=== PATIENT | female | born 1960 | race Caucasian/White ===

== ENCOUNTER 2020-10-30 19:36 | Outpatient (CLI) | payer MEDICAID | END 2020-10-30 23:59 | disposition EMS.NT | LOC: EMS 19:36 | DX: R45.89 Other symptoms and signs involving emotional state (principal) ==

== ENCOUNTER 2020-10-30 20:36 | Emergency (ER) | payer MEDICAID, MEDICARE, OTHER ==
--- NOTE | 2020-10-30 20:51 | ED Physician Documentation ---
PD HPI ALTERED MENTAL STATUS - Stated complaint Stated Complaint: UNRESPONSIVE - Chief complaint Chief Complaint: MHE PD PAST MEDICAL HISTORY - Past Medical History Cardiovascular: Hypertension, High cholesterol, Pulmonary embolism Respiratory: Sleep apnea, CPAP use GI: Crohn's disease Psych: Anxiety - Past Surgical History Past Surgical History: Yes General: Cholecystectomy Cardiovascular: Coronary stent - Present Medications Home Medications: Ambulatory Orders Medication Instructions Recorded Confirmed Aspirin [Aspir 81] 81 mg PO DAILY 02/24/15 01/12/18 Atorvastatin Calcium [Lipitor] 80 mg PO QPM 02/24/15 01/12/18 PARoxetine HCl [Paxil] 30 mg PO DAILY 02/24/15 01/12/18 Temazepam [Restoril] 15 - 30 mg PO QPM PRN 02/24/15 01/12/18 Triamterene/Hydrochlorothiazid 1 tab PO DAILY 02/24/15 01/12/18 [Triamterene-Hctz 37.5-25 mg Cp] Furosemide 40 mg PO SUMOWEFR@0800 01/06/18 01/12/18 Melatonin 5 mg PO QPM 01/06/18 01/12/18 Metoprolol Succinate [Toprol Xl] 50 mg PO QPM 01/06/18 01/12/18 Potassium Chloride 20 meq PO DAILY 01/06/18 01/12/18 Ropinirole HCl 1 mg PO QPM 01/06/18 01/12/18 Bifidobacterium Infantis [Align] 4 mg PO DAILY 01/07/18 01/12/18 Warfarin Sodium 6 mg PO SUTUTHSA@2100 01/07/18 01/12/18 Warfarin [Coumadin] 4 mg PO MOWEFR@2100 01/07/18 01/12/18 Ciprofloxacin [Cipro] 500 mg PO BID #8 tablet 01/09/18 01/12/18 metroNIDAZOLE [Flagyl] 500 mg PO Q8H #12 tablet 01/09/18 01/12/18 cephALEXin [Keflex] 500 mg PO QID #40 capsule 01/10/18 01/12/18 - Allergies Allergies/Adverse Reactions: Allergies Allergy/AdvReac Type Severity Reaction Status Date / Time adhesive Allergy Unknown Verified 10/13/20 10:58 Sulfa (Sulfonamide Allergy Rash Verified 10/13/20 10:58 Antibiotics) tetracycline Allergy Unknown Verified 10/13/20 10:58 - Social History Does the pt smoke?: No Smoking Status: Never smoker Does the pt have substance abuse?: No - Immunizations Immunizations are current?: Yes - POLST Patient has POLST: No Results - Vitals Vitals: Vital Signs - 24 hr 10/30/20 20:43 Temperature 36.9 C Heart Rate 86 Respiratory 18 Rate Blood Pressure 107/67 O2 Saturation 98 Oxygen O2 Source Room air PD MEDICAL DECISION MAKING - ED course ED course: Patient access assigned the patient to the wrong account number. Please ignore this note.
== END 2020-10-30 21:26 | disposition home or self-care (01) ==
LOC: EDUNIT# → EDBD → EDUNIT# 20:36 → EDBD 20:36 → ED 20:36
DX: Z53.21 Procedure and treatment not carried out due to patient leaving prior to being seen by health care provider (principal)
CPT/HCPCS: 80053; 80320; 83735; 85025

== ENCOUNTER 2020-10-30 21:15 | Emergency (ER) | payer MEDICAID ==
--- NOTE | 2020-10-30 21:22 | ED Physician Documentation ---
History of Present Illness - Stated complaint Stated Complaint: UNRESPONSIVE - Chief complaint Chief Complaint: MHE - History obtained from History obtained from: Patient, EMS - Additonal information Additional information: She presents by ambulance after an episode of unconsciousness, but the EMT states that even when she was unconscious she was screaming. Reportedly mixed some alcohol with an Ambien and her other regular meds tonight. There was no suicidal attempt or overdose other than the alcohol though. She admits to depression anxiety but has no other acute complaints. Review of Systems Ten Systems: 10 systems reviewed and negative Constitutional: reports: Reviewed and negative Throat: reports: Reviewed and negative Cardiac: reports: Reviewed and negative PD PAST MEDICAL HISTORY - Present Medications Home Medications: Ambulatory Orders Medication Instructions Recorded Confirmed Citalopram Hydrobromide [Celexa] 40 mg PO DAILY 10/30/20 10/30/20 Levothyroxine Sodium 150 mcg PO DAILY 10/30/20 10/30/20 [Levothyroxine] Liothyronine Sodium [Cytomel] 25 mg PO DAILY 10/30/20 10/31/20 Methocarbamol [Robaxin-750] 750 mg PO DAILY PRN 10/30/20 10/30/20 Metoprolol Tartrate [Lopressor] 50 mg PO DAILY 10/30/20 10/31/20 Pantoprazole Sodium [Protonix] 40 mg PO DAILY 10/30/20 10/31/20 Zolpidem Tartrate [Ambien] 10 mg PO QPM 10/30/20 10/31/20 hydrOXYzine HCL [Hydroxyzine HCl] 25 mg PO DAILY 10/30/20 10/31/20 - Allergies Allergies/Adverse Reactions: Allergies Allergy/AdvReac Type Severity Reaction Status Date / Time No Known Drug Allergies Allergy Verified 10/30/20 21:35 PD ED PE NORMAL - Vitals Vital signs reviewed: Yes - General General: Alert and oriented X 3, No acute distress - HEENT HEENT: PERRL, EOMI (with nystagmus) - Neck Neck: Supple, no meningeal sign, No bony TTP - Cardiac Cardiac: RRR, No murmur - Respiratory Respiratory: No respiratory distress, Clear bilaterally - Back Back: No CVA TTP, No spinal TTP - Derm Derm: Normal color, Warm and dry - Extremities Extremities: No edema, No calf tenderness / cord - Neuro Neuro: Alert and oriented X 3, Normal speech - Psych Psych: Other (tearful) Results - Vitals Vitals: Vital Signs - 24 hr 10/30/20 10/30/20 10/31/20 21:18 23:47 07:26 Temperature 36.9 C 36.5 C Heart Rate 86 72 73 Respiratory 18 16 18 Rate Blood Pressure 107/67 118/83 H 152/87 H O2 Saturation 98 95 94 Oxygen O2 Source Room air - Labs Labs: Laboratory Tests 10/30/20 10/30/20 10/30/20 21:25 21:29 21:29 WBC 7.0 RBC 3.84 L Hgb 12.9 Hct 38.5 MCV 100.3 H MCH 33.6 H MCHC 33.5 RDW 12.8 Plt Count 206 MPV 10.0 Neut # (Auto) 4.2 Lymph # (Auto) 2.0 [place] # (Auto) 0.6 Eos # (Auto) 0.2 Baso # (Auto) 0.1 Absolute Nucleated RBC 0.00 Nucleated RBC % 0.0 Sodium 142 Potassium 5.1 H Chloride 109 Carbon Dioxide 21 Anion Gap 12.0 BUN 27 H Creatinine 1.1 H Estimated GFR (MDRD) 50 L Glucose 96 Calcium 8.8 Magnesium 2.0 Total Bilirubin 0.4 AST 24 ALT 16 Alkaline Phosphatase 71 Total Protein 7.3 Albumin 3.9 Globulin 3.4 Albumin/Globulin Ratio 1.1 Lipase 23 Nasal Adenovirus (PCR) Nasal B. parapertussis DNA (PCR) Nasal Coronavir 229E PCR Nasal Coronavir HKU1 PCR Nasal Coronavir NL63 PCR Nasal Coronavir OC43 PCR Nasal Enterovir/Rhinovir PCR Nasal Influenza B PCR Nasal Influenza A PCR Nasal Parainfluen 1 PCR Nasal Parainfluen 2 PCR Nasal Parainfluen 3 PCR Nasal Parainfluen 4 PCR Nasal RSV (PCR) Nasal B.pertussis DNA PCR Nasal C.pneumoniae (PCR) Larry Human Metapneumo PCR Nasal M.pneumoniae (PCR) Nasal SARS-CoV-2 (PCR) Salicylates < 6.0 Urine Opiates Screen NEGATIVE Ur Oxycodone Screen NEGATIVE Urine Methadone Screen NEGATIVE Ur Propoxyphene Screen NEGATIVE Acetaminophen < 10 L Ur Barbiturates Screen NEGATIVE Ur Tricyclics Screen NEGATIVE Ur Phencyclidine Scrn NEGATIVE Ur Amphetamine Screen NEGATIVE U Methamphetamines Scrn NEGATIVE U Benzodiazepines Scrn NEGATIVE Urine Cocaine Screen NEGATIVE U Cannabinoids Screen NEGATIVE Ethyl Alcohol 225.1 10/30/20 10/31/20 23:44 07:17 WBC RBC Hgb Hct MCV MCH MCHC RDW Plt Count MPV Neut # (Auto) Lymph # (Auto) [place] # (Auto) Eos # (Auto) Baso # (Auto) Absolute Nucleated RBC Nucleated RBC % Sodium Potassium Chloride Carbon Dioxide Anion Gap BUN Creatinine Estimated GFR (MDRD) Glucose Calcium Magnesium Total Bilirubin AST ALT Alkaline Phosphatase Total Protein Albumin Globulin Albumin/Globulin Ratio Lipase Nasal Adenovirus (PCR) NOT DETECTED Nasal B. parapertussis DNA (PCR) NOT DETECTED Nasal Coronavir 229E PCR NOT DETECTED Nasal Coronavir HKU1 PCR NOT DETECTED Nasal Coronavir NL63 PCR NOT DETECTED Nasal Coronavir OC43 PCR NOT DETECTED Nasal Enterovir/Rhinovir PCR NOT DETECTED Nasal Influenza B PCR NOT DETECTED Nasal Influenza A PCR NOT DETECTED Nasal Parainfluen 1 PCR NOT DETECTED Nasal Parainfluen 2 PCR NOT DETECTED Nasal Parainfluen 3 PCR NOT DETECTED Nasal Parainfluen 4 PCR NOT DETECTED Nasal RSV (PCR) NOT DETECTED Nasal B.pertussis DNA PCR NOT DETECTED Nasal C.pneumoniae (PCR) NOT DETECTED Larry Human Metapneumo PCR NOT DETECTED Nasal M.pneumoniae (PCR) NOT DETECTED Nasal SARS-CoV-2 (PCR) NOT DETECTED Salicylates Urine Opiates Screen Ur Oxycodone Screen Urine Methadone Screen Ur Propoxyphene Screen Acetaminophen Ur Barbiturates Screen Ur Tricyclics Screen Ur Phencyclidine Scrn Ur Amphetamine Screen U Methamphetamines Scrn U Benzodiazepines Scrn Urine Cocaine Screen U Cannabinoids Screen Ethyl Alcohol 66.6 PD MEDICAL DECISION MAKING - ED course ED course: 60yo woman presents with EtOH intoxication. While drunk, voicing request to go to detox. Care to overnight ED MD pending sobriety and SW C/S in AM. Departure - Departure Clinical Impression: Depression Qualifiers: Depression Type: major depressive disorder Major depression recurrence: recurrent Active/Remission status: currently active Major depression episode severity: moderate Qualified Code(s): F33.1 - Major depressive disorder, recurrent, moderate Alcoholic intoxication Qualifiers: Complication of substance-induced condition: uncomplicated Qualified Code(s): F10.920 - Alcohol use, unspecified with intoxication, uncomplicated Condition: Stable Instructions: ED Depression, ED Alcohol Intoxication
[2020-10-30] MEDS ORDERED: LORazepam 1 MG TABLET PO STA (21:29)
[2020-10-30 21:33] LABS: BASOPHILS # (AUTO) 0.1 10^3/uL (0.0-0.1); BASOPHILS % (AUTO) 0.7 %; EOSINOPHILS # (AUTO) 0.2 10^3/uL (0.0-0.7); HCT - HEMATOCRIT 38.5 % (37.0-47.0); HGB - HEMOGLOBIN 12.9 g/dL (12.0-16.0); LYMPHOCYTES % (AUTO) 28.6 %; MEAN CORPUSCULAR HEMOGLOBIN 33.6 pg (27.0-31.0); MEAN CORPUSCULAR HGB CONC 33.5 g/dL (32.0-36.0); MEAN CORPUSCULAR VOLUME 100.3 fL (81.0-99.0); MONOCYTES # (AUTO) 0.6 10^3/uL (0.0-1.0); MONOCYTES % (AUTO) 8.1 %; NEUTROPHILS # (AUTO) 4.2 10^3/uL (1.5-6.6); NEUTROPHILS % (AUTO) 59.5 %; PLT - PLATELET COUNT 206 10^3/uL (130-450); RED BLOOD COUNT 3.84 10^6/uL (4.20-5.40); RED CELL DISTRIBUTION WIDTH 12.8 % (12.0-15.0)
[2020-10-30 21:33] LABS: MUDS CUTOFF CONCENTRATIONS CUTOFF CONC BELOW:
[2020-10-30 21:46] LABS: AMPHETAMINE SCREEN,URINE NEGATIVE (NEGATIVE); BARBITURATE SCREEN,UR NEGATIVE (NEGATIVE); BENZODIAZEPINES SCREEN, URINE NEGATIVE (NEGATIVE); COCAINE SCREEN URINE NEGATIVE (NEGATIVE); METHADONE SCREEN, URINE NEGATIVE (NEGATIVE); METHAMPHETAMINES SCREEN, URINE NEGATIVE (NEGATIVE); OPIATE SCREEN, URINE NEGATIVE (NEGATIVE); OXYCODONE SCREEN, URINE NEGATIVE (NEGATIVE); PROPOXYPHENE SCREEN, URINE NEGATIVE (NEGATIVE); THC CANNABINOID SCREEN, URINE NEGATIVE (NEGATIVE); TRICYCLIC ANTIDEPRESSANT,URINE NEGATIVE (NEGATIVE)
[2020-10-30 21:50] LABS: ACETAMINOPHEN < 10 ug/mL (10-30); ALBUMIN 3.9 g/dL (3.2-5.5); ALBUMIN/GLOBULIN RATIO 1.1 (1.0-2.2); ALKALINE PHOSPHATASE 71 IU/L (42-121); ALT ALANINE AMINOTRANSFERASE 16 IU/L (10-60); AST ASPARTATE AMINOTRANSFERASE 24 IU/L (10-42); BILIRUBIN,TOTAL 0.4 mg/dL (0.2-1.0); BUN - BLOOD UREA NITROGEN 27 mg/dL (6-20); CALCIUM 8.8 mg/dL (8.5-10.3); CARBON DIOXIDE - CO2 21 mmol/L (21-32); CHLORIDE 109 mmol/L (101-111); CREATININE 1.1 mg/dL (0.4-1.0); ETOH - ETHANOL 225.1 mg/dL; GFR - MDRD 50 (>89); GLUCOSE 96 mg/dL (70-100); LIPASE 23 U/L (22-51); POTASSIUM 5.1 mmol/L (3.5-5.0); SALICYLATE < 6.0 mg/dL; SODIUM 142 mmol/L (135-145); TOTAL PROTEIN 7.3 g/dL (6.7-8.2)
[2020-10-31 00:38] LABS: B. PARAPERTUSSIS- RESP PCR PAN NOT DETECTED; B. PERTUSSIS- RESP PCR PANEL NOT DETECTED; C. PNEUMONIAE- RESP PCR PANEL NOT DETECTED; CORONAVIRUS 229E-RESP PCR NOT DETECTED; CORONAVIRUS HKU1-RESP PCR NOT DETECTED; CORONAVIRUS NL63-RESP PCR NOT DETECTED; CORONAVIRUS OC43-RESP PCR NOT DETECTED; HUMAN METAPNEUMOVIRUS NOT DETECTED; INFLUENZA A- RESP PCR PANEL NOT DETECTED; INFLUENZA B - RESP PCR PANEL NOT DETECTED; M. PNEUMONIAE- RESP PCR PANEL NOT DETECTED; PARAINFLUENZA VIRUS 1 NOT DETECTED; PARAINFLUENZA VIRUS 2 NOT DETECTED; PARAINFLUENZA VIRUS 3 NOT DETECTED; PARAINFLUENZA VIRUS 4 NOT DETECTED; RHINOVIRUS/ENTEROVIRUS NOT DETECTED; RSV- RESP PCR PANEL NOT DETECTED; SARS-CoV-2 -RESP PCR PANEL NOT DETECTED
[2020-10-31 11:17] VITALS: BP 158/100
== END 2020-10-31 12:19 | disposition home or self-care (01) ==
LOC: ED 21:15
DX: F10.920 Alcohol use, unspecified with intoxication, uncomplicated (principal); F33.1 Major depressive disorder, recurrent, moderate; F41.9 Anxiety disorder, unspecified; Z20.822 Contact with and (suspected) exposure to COVID-19
CPT/HCPCS: 0202U; 36415; 80053; 80306; 80307; 80320; 80329; 83690; 83735; 85025; 99283; 99284; J8499

== ENCOUNTER 2020-12-08 15:04 | Emergency (ER) | payer MEDICAID ==
--- OUTSIDE RECORDS SUMMARY | 2020-12-08 15:08 | EXTERNAL MEDICAL SUMMARY RPT | Continuity of Care Document ---
:1960 Demographics Phone Unavailable Preferred Language Unknown Marital Status Unknown Zoroastrianism Affiliation Unknown Race Unknown Ethnic Group Unknown Author Organization [place] Address [address] [phone] Phone Care Team Providers Name Role Phone Registrar Unavailable Unavailable Problems date description facility 20201201 Alcohol use All 20201201 Allergic rhinitis All 20201201 Allergic rhinitis, cause unspecified A ll 20201201 Allergic rhinitis, unspecified All 20201201 CBC W/Diff/Plt All 20201201 COMPREHENSIVE METABOLIC PANEL All 20201201 Dysthymic disorder All 20201201 Encounters for other specified administ rative purpose All 20201201 Esophageal reflux All 20201201 Exercise All 20201201 Feeling down, depressed, or hopeless? All 20201201 Former smoker All 20201201 Gastro-esophageal reflux disease withou t esophagitis All 20201201 Gastroesophageal reflux disease All 20201201 Hypothyroidism All 20201201 Hypothyroidism, unspecified All 20201201 Insomnia All 20201201 Insomnia, unspecified All 20201201 LIPIDS SCREEN All 20201201 Little interest or pleasure in doing th ings? All 20201201 MM SCR DIGITAL MAMMO BILAT All 20201201 Migraine All 20201201 Migraine, unspecified, not intractable, without status All migrainosus 20201201 Migraine, unspecified, without mention of intractable All migraine, without mention of status migr ainosus 20201201 Mixed anxiety and depressive disorder All 20201201 Other specified anxiety disorders All 20201201 Other specified counseling All 20201201 Patient Health Questionnaire 2 item (PH Q2) total score All 20201201 Procedure carried out on subject All 20201201 Scoliosis [and kyphoscoliosis], idiopat hic All 20201201 Scoliosis deformity of spine All 20201201 Scoliosis, unspecified All 20201201 TSH WITH REFLEX TO FT4 All 20201201 Total score? All 20201201 Unspecified hypothyroidism All Medications date description facility 20201201 ZOLPIDEM TARTRATE All 20201201 FLUTICASONE PROPIONATE All 20201201 HYDROXYZINE HCL All 20201201 CITALOPRAM HYDROBROMIDE All 20201201 METOPROLOL TARTRATE All 20201201 LEVOTHYROXINE SODIUM All 20201201 SUMATRIPTAN SUCCINATE All 20201201 PANTOPRAZOLE SODIUM All [id number] LIOTHYRONINE SODIUM All 20657199 METHOCARBAMOL All [id number] METHOCARBAMOL All [id number] FLUTICASONE PROPIONATE All [id number] CITALOPRAM HYDROBROMIDE All [id number] SUMATRIPTAN SUCCINATE All [id number] PANTOPRAZOLE SODIUM All 22500320 ZOLPIDEM TARTRATE All [id number] METOPROLOL TARTRATE All [id number] LIOTHYRONINE SODIUM All 11060748 LEVOTHYROXINE SODIUM All [id number] HYDROXYZINE HCL All Procedures date description facility 20201201 SNOMED-CT:[id number] Hx of Hysterectomy All Vital Signs date measurement value source 20201201 BMI 28.02 kg/m2 20201201 BP_diastolic 69 mm[Hg] 63550481 BP_systolic 115 mm[Hg] 20201201 heart_rate 72 /min [id number] height_metric 152.4 cm [id number] height_standard 60 in 20201201 respiration_rate 16 /min 20201201 temperature_metric 36.22 C 20201201 temperature_standard 97.2 F 20201201 weight_metric 65.09 kg 20201201 weight_standard 143.5 lb Social History date description facility [id number]
--- NOTE | 2020-12-08 15:20 | ED Physician Documentation ---
PD HPI Fall - Stated complaint Stated Complaint: FALL, LEFT SIDE PX - Chief complaint Chief Complaint: Trauma Ch/Bk - History obtained from History obtained from: Patient - History of Present Illness Mechanism of injury: Other (she states she fell from bed. Is staying with her [id number] while son on deployment. Has pain in left back/side.) Fall distance: From bed Where injury occurred: Home (visiting at her son's house) Timing - onset: How many days ago (4) Injury(ies) location: Chest, Back Quality of pain: Pain, Aching Associated symptoms: No: LOC, AMS Worsens with: Movement, Palpation Contributing factors: No: Anticoagulated, Intoxicated Similar symptoms before: Has not had sx before Review of Systems Constitutional: denies: Fever, Chills Nose: denies: Rhinorrhea / runny nose, Congestion Throat: denies: Sore throat Cardiac: reports: Chest pain / pressure (left posterolateral chest and down to flank area.). denies: Palpitations, Pedal edema, Calf pain Respiratory: reports: Dyspnea. denies: Cough, Wheezing GI: reports: Abdominal Pain (left lateral and flank). denies: Nausea, Vomiting, Diarrhea : denies: Hematuria Skin: denies: Abrasion (s), Laceration (s) Neurologic: denies: Focal weakness, Numbness, Headache, Head injury PD PAST MEDICAL HISTORY - Past Medical History Cardiovascular: Hypertension Respiratory: Asthma Endocrine/Autoimmune: HyPOthyroidism GI: GERD Psych: Depression, Anxiety, Other - Past Surgical History Past Surgical History: Yes General: Cholecystectomy, Appendectomy /HEMATOLOGY SPECIALIST: Hysterectomy - Present Medications Home Medications: Ambulatory Orders Medication Instructions Recorded Confirmed Citalopram Hydrobromide [Celexa] 40 mg PO DAILY 10/30/20 12/08/20 Levothyroxine Sodium 150 mcg PO DAILY 10/30/20 12/08/20 [Levothyroxine] Citalopram [CeleXA] 40 mg PO DAILY #30 tablet 10/31/20 12/08/20 LORazepam [Lorazepam] 2 mg PO Q8HR #9 tablet 10/31/20 12/08/20 Liothyronine Sodium [Cytomel] 25 mcg PO DAILY #30 tablet 10/31/20 12/08/20 Methocarbamol [Robaxin-750] 750 mg PO DAILY PRN #30 tab 10/31/20 12/08/20 Pantoprazole Sodium [Protonix] 40 mg PO DAILY #30 10/31/20 12/08/20 Zolpidem Tartrate [Ambien] 10 mg PO QPM #30 tab 10/31/20 12/08/20 hydrOXYzine HCL [Hydroxyzine HCl] 25 mg PO DAILY #30 tab 10/31/20 12/08/20 Metoprolol Tartrate [Lopressor] 50 mg PO BID 12/08/20 12/08/20 Oxycodone HCl/Acetaminophen 1 each PO Q6H PRN #15 tablet 12/08/20 [Percocet 5-325 mg Tablet] tiZANidine [Zanaflex] 4 mg PO Q8H PRN #20 tablet 12/08/20 - Allergies Allergies/Adverse Reactions: Allergies Allergy/AdvReac Type Severity Reaction Status Date / Time adhesive Allergy Unknown Verified 12/08/20 15:07 Sulfa (Sulfonamide Allergy Rash Verified 12/08/20 15:07 Antibiotics) tetracycline Allergy Unknown Verified 12/08/20 15:07 - Social History Does the pt smoke?: No Smoking Status: Never smoker Does the pt drink ETOH?: Yes Does the pt have substance abuse?: No - Immunizations Immunizations are current?: Yes - POLST Patient has POLST: No PD ED PE NORMAL - Vitals Vital signs reviewed: Yes - General General: Alert and oriented X 3, Well developed/nourished, Other (appears in pain left posterolateral chest and flank area) - HEENT HEENT: Atraumatic - Neck Neck: Supple, no meningeal sign, No bony TTP, No adenopathy - Cardiac Cardiac: RRR, No murmur - Respiratory Respiratory: Clear bilaterally, Other (tender left lateral back from about 4th rib down to CVA area. ) - Abdomen Abdomen: Soft, Non tender - Derm Derm: Normal color, Warm and dry Results - Vitals Vitals: Oxygen O2 Source Room air - Labs Labs: Laboratory Tests 12/08/20 12/08/20 12/08/20 15:52 15:52 17:27 WBC 8.8 RBC 4.14 L Hgb 13.5 Hct 39.6 MCV 95.7 MCH 32.6 H MCHC 34.1 RDW 11.2 L Plt Count 250 MPV 10.3 Neut # (Auto) 6.1 Lymph # (Auto) 1.8 [place] # (Auto) 0.7 Eos # (Auto) 0.1 Baso # (Auto) 0.0 Absolute Nucleated RBC 0.00 Nucleated RBC % 0.0 Sodium 139 Potassium 5.0 Chloride 110 Carbon Dioxide 20 L Anion Gap 9.0 BUN 24 H Creatinine 1.2 H Estimated GFR (MDRD) 46 L Glucose 90 Calcium 9.5 Total Bilirubin 0.8 AST 16 ALT 13 Alkaline Phosphatase 69 Total Protein 7.9 Albumin 4.6 Globulin 3.3 Albumin/Globulin Ratio 1.4 Lipase 35 Urine Color YELLOW Urine Clarity CLEAR Urine pH 6.0 Ur Specific Bennett 1.010 Urine Protein NEGATIVE Urine Glucose (UA) NEGATIVE Urine Ketones NEGATIVE Urine Occult Blood TRACE-LYSE Urine Nitrite NEGATIVE Urine Bilirubin NEGATIVE Urine Urobilinogen 0.2 (NORMAL) Ur Leukocyte Esterase NEGATIVE Ur Microscopic Review NOT INDICATED Urine Culture Comments NOT INDICATED Urine Opiates Screen NEGATIVE Ur Oxycodone Screen NEGATIVE Urine Methadone Screen NEGATIVE Ur Propoxyphene Screen NEGATIVE Ur Barbiturates Screen NEGATIVE Ur Tricyclics Screen NEGATIVE Ur Phencyclidine Scrn NEGATIVE Ur Amphetamine Screen NEGATIVE U Methamphetamines Scrn NEGATIVE U Benzodiazepines Scrn NEGATIVE Urine Cocaine Screen NEGATIVE U Cannabinoids Screen NEGATIVE - Rads (name of study) chest/abd CT Radiology: Prelim report reviewed (no organ injuries. contour abnormality at 4th rib suggestive of nondisplaced fracture. ), See rad report PD MEDICAL DECISION MAKING - ED course Complexity details: reviewed results (single rib fracture, no organ injuries, and she would prefer going home. ), considered differential, d/w patient Departure - Departure Disposition: 01 Home, Self Care Clinical Impression: Fall from bed, initial encounter Contusion, chest wall Qualifiers: Encounter type: initial encounter Laterality: left Qualified Code(s): S20.212A - Contusion of left front wall of thorax, initial encounter Rib fracture Qualifiers: Encounter type: initial encounter Rib fracture type: single rib Fracture type: closed Laterality: left Qualified Code(s): S22.32XA - Fracture of one rib, left side, initial encounter for closed fracture Condition: Stable Record reviewed to determine appropriate education?: Yes Instructions: ED Contusion Chest Wall, ED Fx Rib Follow-Up: Jennifer Landeros ARNP [Primary Care Provider] - Prescriptions: Oxycodone HCl/Acetaminophen [Percocet 5-325 mg Tablet] 1 each PO Q6H PRN #15 tablet PRN Reason: pain tiZANidine [Zanaflex] 4 mg PO Q8H PRN #20 tablet PRN Reason: Spasms Comments: Your CT scan shows a possible nondisplaced fracture of the lateral fourth rib. This is a little higher than where you are actually hurting so there may be just mostly strain of the muscles around the ribs in the area of the pain. It could be referring down from that area as well. No signs of organ injuries on the CT scan. Stay well-hydrated. Activity as tolerated. Continue with some anti- inflammatories such as ibuprofen or naproxen with food 2-3 times daily for the next several days to a week. To that add tizanidine muscle relaxant for spasm or stiffness. To that add Tylenol every 4-6 hours for oxycodone if needed for worse pain. I would anticipate improvement over the next several days and resolution by 5 to 7 days. Recheck if not improving in that timeframe. Return if worsening. Discharge Date/Time: 12/08/20 19:03
--- OUTSIDE RECORDS SUMMARY | 2020-12-08 15:21 | EXTERNAL MEDICAL SUMMARY RPT | Continuity of Care Document ---
:1960 Demographics Phone Unavailable Preferred Language Unknown Marital Status Unknown Pentecostal Affiliation Unknown Race Unknown Ethnic Group Unknown Author Organization [place] Address [address] [phone] Phone Care Team Providers Name Role Phone [...] SUMATRIPTAN SUCCINATE All 20201201 PANTOPRAZOLE SODIUM All [id number] LIOTHYRONINE SODIUM All [id number] METHOCARBAMOL All [id number] METHOCARBAMOL All [id number] FLUTICASONE PROPIONATE All [id number] CITALOPRAM HYDROBROMIDE All [id number] SUMATRIPTAN SUCCINATE All [id number] PANTOPRAZOLE SODIUM All 70581758 ZOLPIDEM TARTRATE All 05527521 METOPROLOL TARTRATE All 81864183 LIOTHYRONINE SODIUM All 69850894 LEVOTHYROXINE SODIUM All 07549321 HYDROXYZINE HCL All Procedures date description facility 20201201 SNOMED-CT:[id number] Hx of Hysterectomy All Vital Signs date measurement value source 20201201 BMI 28.02 kg/m2 20201201 BP_diastolic 69 mm[Hg] 02530115 BP_systolic 115 mm[Hg] 20201201 heart_rate 72 /min 20201201 height_metric 152.4 cm [id number] height_standard 60 in 20201201 respiration_rate 16 /min 20201201 temperature_metric 36.22 C 20201201 temperature_standard 97.2 F 20201201 weight_metric 65.09 kg 20201201 weight_standard 143.5 lb Social History date description facility [id number]
[2020-12-08] MEDS ORDERED: HYDROmorphone 1 MG/ML CARPUJECT IVP STA ×2 (15:40→17:57)
[2020-12-08] MEDS ORDERED: SODIUM CHLORIDE 0.9% 1,000 ML IV STA (15:40)
[2020-12-08] MEDS ORDERED: ONDANSETRON 4 MG/2 ML VIAL IVP STA (15:40)
[2020-12-08] MEDS ORDERED: KETOROLAC 30 MG/ML VIAL IVP STA (15:40)
[2020-12-08 16:00] LABS: BASOPHILS % (AUTO) 0.5 %; EOSINOPHILS # (AUTO) 0.1 10^3/uL (0.0-0.7); EOSINOPHILS % (AUTO) 1.5 %; HCT - HEMATOCRIT 39.6 % (37.0-47.0); HGB - HEMOGLOBIN 13.5 g/dL (12.0-16.0); LYMPHOCYTES # (AUTO) 1.8 10^3/uL (1.5-3.5); LYMPHOCYTES % (AUTO) 20.9 %; MEAN CORPUSCULAR HEMOGLOBIN 32.6 pg (27.0-31.0); MEAN CORPUSCULAR HGB CONC 34.1 g/dL (32.0-36.0); MEAN CORPUSCULAR VOLUME 95.7 fL (81.0-99.0); MEAN PLATELET VOLUME 10.3 fL (7.9-10.8); MONOCYTES # (AUTO) 0.7 10^3/uL (0.0-1.0); MONOCYTES % (AUTO) 7.8 %; NEUTROPHILS # (AUTO) 6.1 10^3/uL (1.5-6.6); NEUTROPHILS % (AUTO) 69.1 %; PLT - PLATELET COUNT 250 10^3/uL (130-450); RED BLOOD COUNT 4.14 10^6/uL (4.20-5.40); RED CELL DISTRIBUTION WIDTH 11.2 % (12.0-15.0); WHITE BLOOD COUNT 8.8 x10^3/uL (4.8-10.8)
[2020-12-08] MEDS ORDERED: IOPAMIDOL-300 100 ML VIAL ONE (16:01)
[2020-12-08 16:12] LABS: ALBUMIN 4.6 g/dL (3.2-5.5); ALBUMIN/GLOBULIN RATIO 1.4 (1.0-2.2); BILIRUBIN,TOTAL 0.8 mg/dL (0.2-1.0); CALCIUM 9.5 mg/dL (8.5-10.3); CREATININE 1.2 mg/dL (0.4-1.0); TOTAL PROTEIN 7.9 g/dL (6.7-8.2)
[2020-12-08] MEDS ORDERED: IOPAMIDOL-300 100 ML VIAL IVP ONE (17:12)
--- NOTE | 2020-12-08 17:33 | CT Report ---
PROCEDURE: Abdomen/Pelvis W INDICATIONS: fall with injury left chest/upper abd CONTRAST: IV CONTRAST: Isovue 300 ml: 100 PO CONTRAST: *NO PO CONTRAST TECHNIQUE: After the administration of intravenous contrast, 5 mm thick sections acquired from the diaphragms to the symphysis. 5 mm thick coronal and sagittal reformats were acquired. For radiation dose reducti on, the following was used: automated exposure control, adjustment of mA and/or kV according to nikolai ent size. COMPARISON: Same day CT chest. FINDINGS: Image quality: Excellent. ABDOMEN: Lung bases: Lung bases are clear. Heart size is normal. Solid organs: Liver and spleen are normal in size and enhancement. Gallbladder is surgically absent . Surgical clip adjacent to the inferior margin of the liver. No fluid collection. Biliary system is non dilated. Pancreas enhances normally. No adrenal nodules. Right kidney atrophy. Bilateral renal cortical thinning. No hydronephrosis. Peritoneum and bowel: Bowel loops demonstrate normal wall thickness and caliber. A few colonic dive rticuli. No diverticulitis. Somewhat prominent stool in the right colon. The appendix is not definite ly seen. No free fluid or air. Nodes and vessels: No retroperitoneal or mesenteric adenopathy by size criteria. Aorta and inferior vena cava are normal in size. Miscellaneous: No ventral hernias. PELVIS: Genitourinary: Bladder wall thickness is normal. Uterus is absent. Miscellaneous: No inguinal hernias or adenopathy. Bones: Marked lumbar spine levoscoliosis. No suspicious bony lesions. No vertebral body compression fractures. IMPRESSION: 1. No acute traumatic injury identified. 2. No free fluid. 3. Right kidney is mildly atrophic. Bilateral renal cortical thinning which could be due to medical r enal disease. No hydronephrosis. 4. Marked scoliosis. Reviewed by: Alfredo Evans MD on 12/08/2020 5:31 PM PDT Approved by: Alfredo Evans MD on 12/08/2020 5:31 PM PDT Station ID: [id number]
[2020-12-08 17:34] LABS: MUDS CUTOFF CONCENTRATIONS CUTOFF CONC BELOW:
--- NOTE | 2020-12-08 17:34 | CT Report ---
PROCEDURE: CHEST W INDICATIONS: fall with injury left chest/upper abd CONTRAST: IV CONTRAST: Isovue 300 ml: 100 PO CONTRAST: *NO PO CONTRAST TECHNIQUE: After the administration of intravenous contrast, 5 mm thick sections acquired from the pulmonary api da to the posterior costophrenic angles. 7 mm thick coronal MIP reformats were acquired. For radia tion dose reduction, the following was used: automated exposure control, adjustment of mA and/or kV according to patient size. COMPARISON: Same day CT abdomen and pelvis. FINDINGS: Image quality: Excellent. Lungs and pleura: No acute air space opacities. Tiny nodular opacity at the right lower lobe measuri ng 0.3 cm, (4/182). No pleural effusions or pneumothorax. Central and peripheral airways are patent and normal in caliber. Mediastinum: Heart size is normal. No pericardial effusion. No mediastinal or hilar adenopathy by size criteria. Thoracic aorta and central pulmonary arteries are normal in size. Mild calcified plaq ue in the descending thoracic aorta and upper abdominal aorta. Esophagus is normal in caliber. No h iatal hernia. Bones and chest wall: Subtle undulation of the left lateral fourth rib, (9/17). Scoliosis. No suspi cious bony lesions. No vertebral body compression fractures. No axillary or supraclavicular adenopa thy by size criteria. Thyroid gland demonstrate subcentimeter right thyroid nodules x2. Abdomen: Bilateral renal cortical thinning. Right kidney appears atrophic compared to the left. Post cholecystectomy. Please see separately dictated same day CT abdomen and pelvis IMPRESSION: 1. No acute airspace opacity. No pleural effusion. 2. Subtle undulation of the left lateral fourth rib may be due to nondisplaced fracture. Recommend co rrelation for point tenderness. 3. Subcentimeter right thyroid nodules. Reviewed by: Alfredo Evans MD on 12/08/2020 5:33 PM PDT Approved by: Alfredo Evans MD on 12/08/2020 5:33 PM PDT Station ID: [id number]
[2020-12-08 17:35] LABS: BILIRUBIN,URINE NEGATIVE (NEGATIVE); GLUCOSE, URINE (UA) NEGATIVE (NEGATIVE); KETONES,URINE (UA) NEGATIVE (NEGATIVE); LEUKOCYTE ESTERASE, URINE NEGATIVE (NEGATIVE); NITRITE,URINE NEGATIVE (NEGATIVE); OCCULT BLOOD,URINE TRACE-LYSE (NEGATIVE); PROTEIN,URINE NEGATIVE (NEGATIVE); UROBILINOGEN,URINE 0.2 (NORMAL) E.U./dL (NORMAL)
[2020-12-08 17:36] LABS: CLARITY,URINE CLEAR (CLEAR)
[2020-12-08 17:47] LABS: AMPHETAMINE SCREEN,URINE NEGATIVE (NEGATIVE); BARBITURATE SCREEN,UR NEGATIVE (NEGATIVE); BENZODIAZEPINES SCREEN, URINE NEGATIVE (NEGATIVE); COCAINE SCREEN URINE NEGATIVE (NEGATIVE); METHADONE SCREEN, URINE NEGATIVE (NEGATIVE); METHAMPHETAMINES SCREEN, URINE NEGATIVE (NEGATIVE); OPIATE SCREEN, URINE NEGATIVE (NEGATIVE); OXYCODONE SCREEN, URINE NEGATIVE (NEGATIVE); PROPOXYPHENE SCREEN, URINE NEGATIVE (NEGATIVE); THC CANNABINOID SCREEN, URINE NEGATIVE (NEGATIVE); TRICYCLIC ANTIDEPRESSANT,URINE NEGATIVE (NEGATIVE)
[2020-12-08 19:03] VITALS: BP 130/80
== END 2020-12-08 19:03 | disposition home or self-care (01) ==
LOC: ED 15:04
DX: S22.32XA Fracture of one rib, left side, initial encounter for closed fracture (principal); S20.212A Contusion of left front wall of thorax, initial encounter; W06.XXXA Fall from bed, initial encounter; Y92.003 Bedroom of unspecified non-institutional (private) residence as the place of occurrence of the external cause; I10 Essential (primary) hypertension
CPT/HCPCS: 36415; 71260; 74177; 80053; 80306; 81003; 83690; 85025; 96374; 96376; 99284; J1170; Q9967; 81001; 87086

== ENCOUNTER 2020-12-27 09:53 | Outpatient (CLI) | payer MEDICAID ==
[2020-12-27 10:11] LABS: BASOPHILS % (AUTO) 0.4 %; EOSINOPHILS # (AUTO) 0.1 10^3/uL (0.0-0.7); HCT - HEMATOCRIT 37.3 % (37.0-47.0); HGB - HEMOGLOBIN 12.4 g/dL (12.0-16.0); LYMPHOCYTES # (AUTO) 1.3 10^3/uL (1.5-3.5); LYMPHOCYTES % (AUTO) 25.9 %; MEAN CORPUSCULAR HGB CONC 33.2 g/dL (32.0-36.0); MEAN CORPUSCULAR VOLUME 96.4 fL (81.0-99.0); MEAN PLATELET VOLUME 10.5 fL (7.9-10.8); MONOCYTES # (AUTO) 0.6 10^3/uL (0.0-1.0); MONOCYTES % (AUTO) 11.6 %; NEUTROPHILS % (AUTO) 59.9 %; PLT - PLATELET COUNT 233 10^3/uL (130-450); RED BLOOD COUNT 3.87 10^6/uL (4.20-5.40); RED CELL DISTRIBUTION WIDTH 11.4 % (12.0-15.0)
[2020-12-27 10:34] LABS: ALBUMIN 4.1 g/dL (3.2-5.5); ALBUMIN/GLOBULIN RATIO 1.2 (1.0-2.2); ALKALINE PHOSPHATASE 75 IU/L (42-121); ALT ALANINE AMINOTRANSFERASE 13 IU/L (10-60); AST ASPARTATE AMINOTRANSFERASE 17 IU/L (10-42); BILIRUBIN,TOTAL 0.7 mg/dL (0.2-1.0); BUN - BLOOD UREA NITROGEN 19 mg/dL (6-20); CALCIUM 9.7 mg/dL (8.5-10.3); CARBON DIOXIDE - CO2 24 mmol/L (21-32); CHLORIDE 110 mmol/L (101-111); CHOL/HDL RATIO 3.8 (<4.4); CHOLESTEROL 189 mg/dL; GFR - MDRD 56 (>89); GLUCOSE 97 mg/dL (70-100); HDL CHOLESTEROL 50 mg/dL; LDL CHOLESTEROL,CALCULATED 121 mg/dL; LDL/HDL RATIO 2.4 (<4.4); POTASSIUM 4.8 mmol/L (3.5-5.0); SODIUM 141 mmol/L (135-145); TOTAL PROTEIN 7.5 g/dL (6.7-8.2); TRIGLYCERIDES 90 mg/dL; VLDL CHOLESTEROL 18 mg/dL
[2020-12-27 10:53] LABS: THYROID STIMULATING HORMONE 0.01 uIU/mL (0.34-5.60)
[2020-12-27 11:24] LABS: FREE T4 (FREE THYROXINE) 1.24 ng/dL (0.58-1.64)
== END 2020-12-27 09:54 | disposition home or self-care (01) ==
LOC: LAB 09:53
PROVIDERS: ATTEND Registered Nurse
DX: E03.9 Hypothyroidism, unspecified (principal); G47.00 Insomnia, unspecified; K21.9 Gastro-esophageal reflux disease without esophagitis
CPT/HCPCS: 36415; 80053; 80061; 83721; 84439; 84443; 85025

== ENCOUNTER 2021-04-07 10:56 | Emergency (ER) | payer MEDICAID ==
--- NOTE | 2021-04-07 13:14 | XRAY Report ---
PROCEDURE: Chest 1 View X-Ray INDICATIONS: Fever, congestion TECHNIQUE: One view of the chest was acquired. COMPARISON: None FINDINGS: Surgical changes and devices: None. Lungs and pleura: No pleural effusions or pneumothorax. Lungs are clear. Mediastinum: Mediastinal contours appear normal. Heart size is normal. Bones and chest wall: No suspicious bony lesions. Overlying soft tissues appear unremarkable. IMPRESSION: No acute cardiopulmonary findings Reviewed by: Clark Riley MD on 04/07/2021 12:13 PM AKDT Approved by: Clark Riley MD on 04/07/2021 12:13 PM AKDT Station ID: [id number]
[2021-04-07] MEDS ORDERED: HYDROcod/ACETAM 5/325 MG TABLET PO STA (14:34)
--- NOTE | 2021-04-07 14:36 | ED Physician Documentation ---
PD OSCAR HEENT - Stated complaint Stated Complaint: FEVER/HEAD PX - Chief complaint Chief Complaint: Fever - History obtained from History obtained from: Patient - Additional information Additional information: 60-year-old woman became sick about 4-5 days ago with sinus pressure and mild epistaxis. It has progressed and now has more significant severe sinus pressure and a low-grade fever to 100.5. She is fully immunized against Covid but would like a Covid test. Also needs something for the facial pain and headache. Review of Systems Constitutional: reports: Fever Nose: reports: Rhinorrhea / runny nose, Congestion Throat: reports: Sore throat Respiratory: reports: Cough. denies: Dyspnea PD PAST MEDICAL HISTORY - Past Medical History Cardiovascular: Hypertension Respiratory: Asthma Endocrine/Autoimmune: HyPOthyroidism GI: GERD Psych: Depression, Anxiety, Other - Past Surgical History Past Surgical History: Yes General: Cholecystectomy, Appendectomy /PC TECHNICIAN: Hysterectomy - Present Medications Home Medications: Ambulatory Orders Medication Instructions Recorded Confirmed Levothyroxine Sodium 125 mcg PO DAILY 10/30/20 04/07/21 [Levothyroxine] Liothyronine Sodium [Cytomel] 25 mcg PO DAILY #30 tablet 10/31/20 04/07/21 Zolpidem Tartrate [Ambien] 10 mg PO QPM #30 tab 10/31/20 04/07/21 Metoprolol Tartrate [Lopressor] 50 mg PO BID 12/08/20 04/07/21 Oxycodone HCl/Acetaminophen 1 each PO Q6H PRN #15 tablet 12/08/20 04/07/21 [Percocet 5-325 mg Tablet] Amox/Clav 875/125 [Augmentin] 1 each PO Q12H #20 tablet 04/07/21 HYDROcod/ACETAM 5/325 [Lagrange 5/325] 1 - 2 tab PO Q6H PRN #15 tablet 04/07/21 Sumatriptan Succinate [Imitrex] 100 mg PO DAILY PRN 04/07/21 04/07/21 hydrOXYzine HCL [Hydroxyzine HCl] 25 mg PO DAILY PRN 04/07/21 04/07/21 - Allergies Allergies/Adverse Reactions: Allergies Allergy/AdvReac Type Severity Reaction Status Date / Time No Known Drug Allergies Allergy Verified 04/07/21 11:12 - Social History Does the pt smoke?: No Smoking Status: Never smoker Does the pt drink ETOH?: Yes Does the pt have substance abuse?: No - Immunizations Immunizations are current?: Yes - POLST Patient has POLST: No PD ED PE NORMAL - Vitals Vital signs reviewed: Yes - General General: Alert and oriented X 3, No acute distress - HEENT HEENT: Other (Tender over both maxillary sinuses, oropharynx normal) - Neck Neck: Supple, no meningeal sign, No bony TTP - Cardiac Cardiac: RRR, No murmur - Respiratory Respiratory: No respiratory distress, Clear bilaterally - Abdomen Abdomen: Normal bowel sounds, Soft, Non tender - Back Back: No CVA TTP, No spinal TTP - Derm Derm: Normal color, Warm and dry - Neuro Neuro: Alert and oriented X 3, Normal speech Results - Vitals Vitals: Vital Signs - 24 hr 04/07/21 11:12 Temperature 37.3 C Heart Rate 80 Respiratory 18 Rate Blood Pressure 151/89 H O2 Saturation 100 Oxygen O2 Source Room air PD MEDICAL DECISION MAKING - ED course ED course: Progression of symptoms and fever would suggest the need for trial of antibiotics per IDSA guidelines. She requested Covid test but it seems inconsistent otherwise. I am prescribing a short course of short-acting opioid pain medication for this patient. I have reviewed the patients COMMUNICATIONS DEPARTMENT HEAD and no concerning findings were noted. I have discussed that the opioids are for short term therapy only, and will not be refilled from the ED. Departure - Departure Disposition: 01 Home, Self Care Clinical Impression: Acute maxillary sinusitis Qualifiers: Recurrence: non-recurrent Qualified Code(s): J01.00 - Acute maxillary sinusitis, unspecified Condition: Good Record reviewed to determine appropriate education?: Yes Instructions: ED Sinusitis Abx Tx Prescriptions: Amox/Clav 875/125 [Augmentin] 1 each PO Q12H #20 tablet HYDROcod/ACETAM 5/325 [Lagrange 5/325] 1 - 2 tab PO Q6H PRN #15 tablet PRN Reason: Pain Comments: You have a Covid test pending. You need to self quarantine until the result is done and negative. Do not leave your house. Do not get near anybody. The results should be done in 48 to 72 hours. We will call with a positive result, the fastest way to get a negative result for confirmation though is to go to the hospital website at [email or web address], click on the my [facility] tab and sign up for the patient portal. If any friends or family get sick and would like to have a Covid test done, but do not have signs or symptoms that would necessitate being hospitalized, we encourage testing through our coronavirus swabbing station, call [phone] to schedule an appointment. I am prescribing a short course of narcotic pain medication for you. These are potentially dangerous and addictive medications that should be used carefully. These medications may constipate you. Take an byvw-zlo-eraonvq stool softener (docusate) twice daily with plenty of water while taking these medications. If you go 24 hours without a bowel movement, take [id number] miralax, per package instructions. Do not drink or drive while taking these medications. If you received narcotic or sedating medications while in the emergency department, do not drive for 24 hours. Store this medication in a safe, secure place and out of reach of children. It is a violation of federal law to give or sell this medication to another person or to use in a manner other than prescribed. The ED will not refill narcotic prescriptions, including prescriptions lost or stolen. To dispose of unwanted medications: 1. [facility] at [address] in [place] has a medication drop box. They accept prescription medications (in pill form) Friday through Friday 9:00 a.m. to 5:00 p.m. 2. [facility] [employer] accepts prescription medications (in pill form only) for disposal year round. Call for more information. 3. Contact the [facility] for the next [facility] sponsored prescription drug collection event. , [phone], or [phone]; Note that many narcotic pain relievers also contain Tylenol/acetaminophen. Please ensure that your total dose of acetaminophen from all sources does not exceed 3 g (3000 mg) per day.
[2021-04-07 14:47] VITALS: BP 146/90
== END 2021-04-07 14:50 | disposition home or self-care (01) ==
LOC: ED 10:56
DX: J01.00 Acute maxillary sinusitis, unspecified (principal); Z20.822 Contact with and (suspected) exposure to COVID-19
CPT/HCPCS: 71045; 87635; 99283; 99284; A9270